=== PATIENT | male | born 1985 | race Caucasian/White ===

== ENCOUNTER 2017-06-14 08:36 | Emergency (ER) | payer OTHER ==
[2017-06-14 08:42] VITALS: RESP 18
--- NOTE | 2017-06-14 08:55 | EDPHY ---
H & P Stated Complaint: BLACK SPOT IN R VISION SINCE WEDNESDAY RECENT TRAVEL Time Seen by Provider: 06/14/17 08:54 HPI/ROS: CHIEF COMPLAINT: "Black disc in left eye" HISTORY OF PRESENT ILLNESS: The patient is a 31 y/o male complaining of loss of vision in his left eye upon waking yesterday morning. He describes a "black disc in the center of my left eye that is a perfect [place]." He says the black spot moves with his eye movements. He still has some vision in that eye. He has associated photosensitivity. No foreign body sensation, eye pain, headache, confusion, speech difficulty, weakness, or paresthesias. He has amblyopia of his right eye that he uses glasses for. No history of eye diseases. REVIEW OF SYSTEMS: A ten point review of systems was performed and is negative with the exception of the items mentioned in the HPI. Past medical history: Amblyopia right eye. Past surgical history: Noncontributory Family history: Noncontributory Social history: Employed. Student. Not . General Appearance: Alert. Vital signs reviewed. Eyes: Pupils equal and round, no conjunctival injection, no discharge. Anicteric. EOMI. Visual Acuity: noted from Nurse's notes. Pupils:equal round and reactive to light,EOMI Lids: no edema or swelling Skin: no proptosis, no periorbital erythema or swelling, no vesicles Conjunctivae: not injected, no discharge Cornea: normal, no fluorescein used Anterior chamber: no hyphema or hypopyon ENT, Mouth: Mucous membranes are moist, no oropharyngeal erythema or edema. Respiratory: Lungs are clear to auscultation; no wheezes, rales, or rhonchi. Cardiovascular: Regular rate and rhythm. Neurological: Alert and oriented. Moving all four extremities easily and equally. Psychiatric: Normal affect. - Personal History Current Tetanus/Diphtheria Vaccine: Yes Current Tetanus Diphtheria and Acellular Pertussis (TDAP): Yes - Medical/Surgical History Hx Asthma: No Hx Chronic Respiratory Disease: No Hx Diabetes: No Hx Cardiac Disease: No Hx Renal Disease: No Hx Cirrhosis: No Hx Alcoholism: No Hx HIV/AIDS: No Hx Splenectomy or Spleen Trauma: No Other PMH: DENIES - Social History Smoking Status: Never smoked Constitutional: Initial Vital Signs Temperature (C) 37.1 C 06/14/17 08:39 Heart Rate 67 06/14/17 08:39 Respiratory Rate 18 06/14/17 08:39 Blood Pressure 122/71 H 06/14/17 08:39 O2 Sat (%) 94 06/14/17 08:39 O2 Delivery Mode Room Air Allergies/Adverse Reactions: No Known Allergies Allergy (Unverified 06/14/17 08:41) Home Medications: Medication Instructions Recorded NK [No Known Home Meds] 06/14/17 Medical Decision Making ED Course/Re-evaluation: This is a healthy 31 y/o male who presents with a 1-day history of disc-shaped painless vision loss in the center of his left eye with associated photosensitivity. No pain or trauma. Eye exam performed by me in ED does not reveal etiology of his vision loss. I do not see evidence of retinal detachment , but pupil was not pharmacologically dilated. He has a normal neuro exam and I do not suspect central nervous system etiology. Plan for consultation with ophthalmology. Consulted with Dr. Bingham, ophthalmology. He we see patient in his office today. Patient will be discharged with instructions to follow up directly after leaving here. Differential Diagnosis: DDX includes but is not limited to retinal detachment, vascular occlusion, foreign body, corneal abrasion, infection, iritis. Departure - Departure Disposition: Home, Routine, Self-Care Clinical Impression: Central loss of vision Qualifiers: Laterality: left Qualified Code(s): H53.412 - [place] involving central area, left eye Condition: Good Instructions: Blurred Vision (ED) Additional Instructions: Go directly to Dr. Alvin Shaw'st office on [address]. He will be expecting you. Referrals: Alvin Bingham MD [Medical Doctor] - As per Instructions Report Scribed for: Kiersten Vera Report Scribed by: Michaela Manley Date of Report: 06/14/17 Time of Report: 09:03 Physician Review and Approval Statement: 06/16/17 16:38 Portions of this chart were entered by a medical cash poster. I personally performed the HPI, MDM, PE. I have reviewed the chart and agree with the documentation.
[2017-06-14 09:46] VITALS: BP 112/69; PULSE 65; TEMP 98.1; O2SAT 96
== END 2017-06-14 09:41 | disposition home or self-care (01) ==
DX: H53.412 Scotoma involving central area, left eye (principal)